=== PATIENT | female | born 1965 | race Caucasian/White ===

== ENCOUNTER → 2016-07-13 | Day surgery (SDC) | payer BC ==
[~2016-07-13] MED LIST: AL-MAG HYDROX-S30 M1 PO; AMBIEN CR PO; AMBIEN10 MG PO; AMLODIPINE BESYL5 MG PO; ATENOLOL-CHLORT1 TA2 PO; ATENOLOL50 MG PO; ATIVAN PO; CHLORTHALIDONE25 M1 PO; CHLORTHALIDONE50 M1 PO; CRESTOR10 MG PO; CYMBALTA PO; CYMBALTA30 MG PO; DESYREL50 MG PO; GENAPAP325 MG PO; HYDROXYZINE HCL50 MG PO; LORAZEPAM1 MG PO; MICRO-K10 MEQ PO; MILK OF MAGNESIA PO; REMERON15 MG PO; TEMAZEPAM PO; TEMAZEPAM30 MG PO; TENORETIC 50 TA1 TAB PO; TENORMIN50 MG PO
--- NOTE | ~2016-07-13 | ECT ---
Unit #: [id number] #: [id number] Patient: WEST DANIELSON [id number] [address] [address] [id number] MR#: [id number] NAME: WEST DANIELSON ROOM: Age: 51 Sex: F Admission Date: 07/13/2016 : 1965 Discharge Date: Attending Physician: Quoc Jones M.D. Primary Care Physician: Generic Doctor Not In System ECT NOTE DATE OF TREATMENT 07/13/2016 TREATMENT NUMBER 7 TREATMENT MODALITY Unilateral ECT ANESTHESIA Glycopyrrolate: 0.2 mg Brevital: 130 mg Succinylcholine: 100 mg TREATMENT PARAMETERS Charge: 224 millicoulombs Pulse Width: 1.0 milliseconds Frequency: 40 Hertz Duration: 3.5 seconds Current: 800 milliamps TREATMENT DELIVERED Energy: 52.8 joules Impedance: 285 ohms Charge: 224 millicoulombs SEIZURE MEASURES OMS: 16 seconds EE seconds COMPLICATIONS None. SUMMARY The patient had a good seizure with her OMS and EEG measures. Depression seems to pretty much have reached remission status and she does seem to be pretty much at her baseline at this point. I will stop her ECT's today and she will followup with me on p.r.n. basis. DIFFERENTIAL DIAGNOSES AXIS I: F33.2. AXIS II: Deferred. AXIS III: Nothing acute. Unit #: [id number] #: [id number] Patient: WEST DANIELSON Dictated by... Elizabet Vyas/regino TD: 07/13/2016 18:34 JOB #: [id number] ECT NOTE X Quoc Jones MD <ELECTRONICALLY SIGNED> 01/08/17 1702 X ECT
== END | disposition home or self-care (01) ==
LOC: CSUR 08:22
DX: F33.2 Major depressive disorder, recurrent severe without psychotic features (principal); I10 Essential (primary) hypertension; E78.5 Hyperlipidemia, unspecified; M19.90 Unspecified osteoarthritis, unspecified site; M54.30 Sciatica, unspecified side; Z79.899 Other long term (current) drug therapy; Z98.890 Other specified postprocedural states; Z88.8 Allergy status to other drugs, medicaments and biological substances; Z87.442 Personal history of urinary calculi; Z98.51 Tubal ligation status
CPT/HCPCS: 90870; J0330; J1885